=== PATIENT | male | born 1990 | race Caucasian/White ===

== ENCOUNTER 2020-11-06 21:48 | Inpatient (IN) | payer OTHER ==
[2020-11-06 22:23] VITALS: BMI 22.7
[2020-11-06] MEDS ORDERED: DICYCLOMINE HCL 10 MG CAPSULE PO PRN (23:17)
[2020-11-06] MEDS ORDERED: MAG HYDROX/AL HYDROX/SIMETH 30 ML UNIT-DOSE CUP PO PRN (23:17)
[2020-11-06] MEDS ORDERED: MAGNESIUM CITRATE 300 ML BOTTLE PO PRN (23:17)
[2020-11-06] MEDS ORDERED: NICOTINE POLACRILEX 4 MG GUM BUC PRN ×2 (23:17→23:38)
[2020-11-06] MEDS ORDERED: BISMUTH SUBSALICYLATE 524 MG/30 ML UD PO PRN (23:17)
[2020-11-06] MEDS ORDERED: ACETAMINOPHEN 325 MG TABLET (FP) PO PRN (23:17)
[2020-11-06] MEDS ORDERED: cloNIDine HCL 0.1 MG TABLET PO PRN (23:17)
[2020-11-06] MEDS ORDERED: MAGNESIUM HYDROX 2400MG/30ML ORAL SUSPENSION 30 ML CUP PO PRN (23:17)
[2020-11-06] MEDS ORDERED: METHADONE HCL 10 MG TABLET (FOR DETOX USE ONLY) PO ONE (23:17)
[2020-11-06] MEDS ORDERED: NALOXONE (NARCAN) HCL 4 MG/0.1 ML SPRAY NS PRN (23:17)
[2020-11-06] MEDS ORDERED: hydrOXYzine PAMOATE 25 MG CAPSULE (FP) PO PRN (23:17)
[2020-11-06] MEDS ORDERED: NALOXONE HCL 0.4 MG/ML VIAL IM PRN (23:17)
[2020-11-06] MEDS ORDERED: guaiFENesin 200 MG/10 ML 10 ML UNIT-DOSE CUPS PO PRN (23:17)
[2020-11-06] MEDS ORDERED: P-EPHED 60MG/TRIPROLIDI 2.5MG TABLET PO PRN (23:17)
[2020-11-06] MEDS ORDERED: METHOCARBAMOL 500 MG TABLET PO PRN (23:17)
[2020-11-06] MEDS ORDERED: ONDANSETRON *ODT* 4 MG TABLET SL PRN (23:17)
[2020-11-06] MEDS ORDERED: MENTHOL/PHENOL 1 EACH UD MM PRN (23:17)
[2020-11-07] MEDS ORDERED: METHADONE HCL 10 MG TABLET (FOR DETOX USE ONLY) ONE ×2 (00:01→11:00)
[2020-11-07] MEDS ORDERED: diazePAM 5 MG TABLET ONE ×2 (00:01→05:25)
[2020-11-07] MEDS: diazePAM 5 MG TABLET PO SCH ×5 (00:12→22:05)
[2020-11-07] MEDS ORDERED: METHADONE (DETOX) 20 MG, METHADONE (DETOX) 5 MG PO ONE (10:00)
[2020-11-07] MEDS ORDERED: NICOTINE 21 MG/24 HOURS TOPICAL PATCH TD SCH (10:00)
[2020-11-07] MEDS ORDERED: METHADONE HCL 5 MG TABLET (FOR DETOX USE ONLY) PO ONE (10:00)
[2020-11-07 10:06] LABS: CALCIUM 8.7 mg/dL (8.5-10.1); HEMATOCRIT 37.4 % (35.4-49); HEMOGLOBIN 12.3 GM/dL (11.7-16.9); MCH 28.4 pg (25.7-33.7); MCHC 32.8 g/dl (32.0-35.9); MEAN CELL VOLUME 86.4 fl (80-96); MEAN PLT VOLUME 8.3 fl (7.5-11.1); PLATELET COUNT 255 K/MM3 (134-434); RBC 4.33 M/mm3 (4.00-5.60); RDW 12.9 % (11.9-15.9); WHITE BLOOD COUNT 8.7 K/mm3 (4.0-10.0)
[2020-11-07 10:07] LABS: BLOOD UREA NITROGEN 19.2 mg/dL (7-18)
[2020-11-07 10:08] LABS: ALBUMIN 3.7 g/dl (3.4-5.0)
[2020-11-07 10:11] LABS: BILIRUBIN,TOTAL 0.3 mg/dL (0.2-1); TOT PROT 6.9 g/dl (6.4-8.2)
[2020-11-07] MEDS ORDERED: METHADONE HCL 5 MG TABLET (FOR DETOX USE ONLY) ONE (10:59)
[2020-11-07] MEDS: PRENATAL VITAMINS W/ FOLIC ACID TABLET (FP) PO SCH (11:08)
[2020-11-07] MEDS: NICOTINE 21 MG/24 HOURS TOPICAL PATCH TD SCH (11:08)
[2020-11-07] MEDS: THIAMINE HCL 100 MG TABLET (FP) PO SCH (22:05)
[2020-11-07] MEDS: MELATONIN 5 MG TABLETS PO SCH (22:06)
[2020-11-08] MEDS: diazePAM 5 MG TABLET PO SCH ×3 (05:30→22:05)
[2020-11-08] MEDS: diazePAM 5 MG TABLET PO PRN ×2 (08:35→18:14)
[2020-11-08] MEDS: ACETAMINOPHEN 325 MG TABLET (FP) PO PRN (08:37)
[2020-11-08] MEDS ORDERED: METHADONE HCL 10 MG TABLET (FOR DETOX USE ONLY) PO ONE (10:00)
[2020-11-08] MEDS: PRENATAL VITAMINS W/ FOLIC ACID TABLET (FP) PO SCH (10:37)
[2020-11-08] MEDS: NICOTINE 21 MG/24 HOURS TOPICAL PATCH TD SCH (10:38)
[2020-11-08] MEDS: IBUPROFEN 400 MG TABLET (FP) PO PRN (14:16)
[2020-11-08] MEDS: THIAMINE HCL 100 MG TABLET (FP) PO SCH (22:06)
[2020-11-08] MEDS: MELATONIN 5 MG TABLETS PO SCH (22:06)
[2020-11-09] MEDS: diazePAM 5 MG TABLET PO SCH ×2 (05:06→18:05)
[2020-11-09 06:06] LABS: SARS-CoV-2 NAA Not Detected (Not Detected)
[2020-11-09] MEDS ORDERED: METHADONE HCL 5 MG TABLET (FOR DETOX USE ONLY) ONE (09:12)
[2020-11-09] MEDS ORDERED: METHADONE HCL 10 MG TABLET (FOR DETOX USE ONLY) ONE (09:13)
[2020-11-09] MEDS: NICOTINE 21 MG/24 HOURS TOPICAL PATCH TD SCH (09:40)
[2020-11-09] MEDS: PRENATAL VITAMINS W/ FOLIC ACID TABLET (FP) PO SCH (09:41)
[2020-11-09] MEDS ORDERED: METHADONE (DETOX) 10 MG, METHADONE (DETOX) 5 MG PO ONE (10:00)
[2020-11-09] MEDS: diazePAM 5 MG TABLET PO PRN ×2 (12:35→22:15)
[2020-11-09] MEDS: ACETAMINOPHEN 325 MG TABLET (FP) PO PRN ×2 (12:36→18:06)
[2020-11-09] MEDS: IBUPROFEN 400 MG TABLET (FP) PO PRN (22:14)
[2020-11-09] MEDS: THIAMINE HCL 100 MG TABLET (FP) PO SCH (22:15)
[2020-11-09] MEDS: MELATONIN 5 MG TABLETS PO SCH (22:16)
[2020-11-10] MEDS ORDERED: diazePAM 5 MG TABLET PO ONE (06:00)
[2020-11-10] MEDS: NICOTINE 21 MG/24 HOURS TOPICAL PATCH TD SCH (09:01)
[2020-11-10] MEDS: PRENATAL VITAMINS W/ FOLIC ACID TABLET (FP) PO SCH (09:01)
[2020-11-10 09:22] VITALS: BP 142/91; PULSE 99; TEMP 97.6
[2020-11-10] MEDS ORDERED: METHADONE HCL 10 MG TABLET (FOR DETOX USE ONLY) PO ONE (10:00)
[2020-11-11] MEDS ORDERED: METHADONE HCL 5 MG TABLET (FOR DETOX USE ONLY) PO ONE (06:00)
== END 2020-11-10 09:28 | disposition home or self-care (01) | DRG 773 ==
LOC: YASAS 21:48 → Y6N 11-07 08:04
PROVIDERS: ADMIT Allergy & Immunology; ATTEND Allergy & Immunology
PROC: HZ2ZZZZ Detoxification Services for Substance Abuse Treatment (ICD-10-PCS; principal; 2020-11-07)
DX: F10.230 Alcohol dependence with withdrawal, uncomplicated (principal); F11.23 Opioid dependence with withdrawal; F13.230 Sedative, hypnotic or anxiolytic dependence with withdrawal, uncomplicated; F14.20 Cocaine dependence, uncomplicated; F17.210 Nicotine dependence, cigarettes, uncomplicated; F19.24 Other psychoactive substance dependence with psychoactive substance-induced mood disorder; F42.4 Excoriation (skin-picking) disorder; K29.20 Alcoholic gastritis without bleeding; K21.9 Gastro-esophageal reflux disease without esophagitis; L30.9 Dermatitis, unspecified; R45.89 Other symptoms and signs involving emotional state
CPT/HCPCS: 36415; 80053; 85027; 86780; 93005; 93010; C9803; J0735; U0003; U0005

== ENCOUNTER 2020-11-24 20:31 | Inpatient (IN) | payer OTHER ==
[2020-11-24 21:24] VITALS: BMI 21.4
[2020-11-25] MEDS ORDERED: MAGNESIUM HYDROX 2400MG/30ML ORAL SUSPENSION 30 ML CUP PO PRN (00:10)
[2020-11-25] MEDS ORDERED: METHADONE HCL 10 MG TABLET (FOR DETOX USE ONLY) PO ONE (00:10)
[2020-11-25] MEDS ORDERED: ACETAMINOPHEN 325 MG TABLET (FP) PO PRN (00:10)
[2020-11-25] MEDS ORDERED: BISMUTH SUBSALICYLATE 524 MG/30 ML PO PRN (00:10)
[2020-11-25] MEDS ORDERED: MENTHOL/PHENOL 1 EACH UD MM PRN (00:10)
[2020-11-25] MEDS ORDERED: MAGNESIUM CITRATE 300 ML BOTTLE PO PRN (00:10)
[2020-11-25] MEDS ORDERED: MAG HYDROX/AL HYDROX/SIMETH 30 ML UNIT-DOSE CUP PO PRN (00:10)
[2020-11-25] MEDS ORDERED: NICOTINE POLACRILEX 2 MG GUM BUC PRN (00:10)
[2020-11-25] MEDS ORDERED: ONDANSETRON *ODT* 4 MG TABLET SL PRN (00:10)
[2020-11-25] MEDS ORDERED: IBUPROFEN 400 MG TABLET (FP) PO PRN (00:10)
[2020-11-25] MEDS ORDERED: METHADONE HCL 10 MG TABLET (FOR DETOX USE ONLY) ONE (00:54)
[2020-11-25] MEDS ORDERED: IBUPROFEN 400 MG TABLET (FP) PO ONE (01:00)
[2020-11-25] MEDS: cloNIDine HCL 0.1 MG TABLET PO PRN (10:04)
[2020-11-25] MEDS: METHOCARBAMOL 500 MG TABLET PO PRN ×2 (10:04→17:44)
[2020-11-25] MEDS: PRENATAL VITAMINS W/ FOLIC ACID TABLET (FP) PO SCH (10:04)
[2020-11-25 12:54] LABS: HEMATOCRIT 36.9 % (35.4-49); HEMOGLOBIN 12.1 GM/dL (11.7-16.9); MCH 28.5 pg (25.7-33.7); MCHC 32.7 g/dl (32.0-35.9); MEAN CELL VOLUME 87.3 fl (80-96); MEAN PLT VOLUME 8.2 fl (7.5-11.1); PLATELET COUNT 220 K/MM3 (134-434); RBC 4.23 M/mm3 (4.00-5.60); RDW 12.7 % (11.9-15.9); WHITE BLOOD COUNT 9.4 K/mm3 (4.0-10.0)
[2020-11-25 13:13] LABS: ALBUMIN 3.8 g/dl (3.4-5.0); BLOOD UREA NITROGEN 19.4 mg/dL (7-18)
[2020-11-25 13:15] LABS: CALCIUM 8.8 mg/dL (8.5-10.1)
[2020-11-25 13:17] LABS: CREATININE 0.8 mg/dL (0.55-1.3)
[2020-11-25 13:18] LABS: BILIRUBIN,TOTAL 0.3 mg/dL (0.2-1); TOT PROT 6.4 g/dl (6.4-8.2)
[2020-11-25] MEDS: THIAMINE HCL 100 MG TABLET (FP) PO SCH (22:09)
[2020-11-25] MEDS: MELATONIN 5 MG TABLETS PO SCH (22:09)
[2020-11-26] MEDS: cloNIDine HCL 0.1 MG TABLET PO PRN ×2 (06:23→19:25)
[2020-11-26] MEDS: METHOCARBAMOL 500 MG TABLET PO PRN ×2 (06:24→19:25)
[2020-11-26] MEDS ORDERED: METHADONE HCL 10 MG TABLET (FOR DETOX USE ONLY) ONE (09:21)
[2020-11-26] MEDS ORDERED: METHADONE HCL 5 MG TABLET (FOR DETOX USE ONLY) ONE (09:22)
[2020-11-26] MEDS ORDERED: METHADONE (DETOX) 20 MG, METHADONE (DETOX) 5 MG PO ONE (10:00)
[2020-11-26] MEDS: PRENATAL VITAMINS W/ FOLIC ACID TABLET (FP) PO SCH (10:20)
[2020-11-26] MEDS: diazePAM 5 MG TABLET PO PRN ×2 (10:56→19:25)
[2020-11-26] MEDS: MELATONIN 5 MG TABLETS PO SCH (22:18)
[2020-11-26] MEDS: THIAMINE HCL 100 MG TABLET (FP) PO SCH (22:18)
[2020-11-27] MEDS ORDERED: METHADONE HCL 10 MG TABLET (FOR DETOX USE ONLY) PO ONE (10:00)
[2020-11-27] MEDS: diazePAM 5 MG TABLET PO PRN ×3 (10:36→22:28)
[2020-11-27] MEDS: PRENATAL VITAMINS W/ FOLIC ACID TABLET (FP) PO SCH (10:36)
[2020-11-27] MEDS: cloNIDine HCL 0.1 MG TABLET PO PRN ×2 (10:39→17:39)
[2020-11-27] MEDS: METHOCARBAMOL 500 MG TABLET PO PRN ×2 (10:39→17:40)
[2020-11-27] MEDS: ACETAMINOPHEN 325 MG TABLET (FP) PO PRN ×2 (10:40→15:46)
[2020-11-27] MEDS: THIAMINE HCL 100 MG TABLET (FP) PO SCH (22:27)
[2020-11-27] MEDS: MELATONIN 5 MG TABLETS PO SCH (22:27)
[2020-11-27] MEDS: QUEtiapine FUMARATE 100 MG TABLET (FP) PO SCH (22:27)
[2020-11-28 06:07] LABS: SARS-CoV-2 NAA Not Detected (Not Detected)
[2020-11-28] MEDS ORDERED: METHADONE HCL 10 MG TABLET (FOR DETOX USE ONLY) ONE (09:57)
[2020-11-28] MEDS ORDERED: METHADONE HCL 5 MG TABLET (FOR DETOX USE ONLY) ONE (09:57)
[2020-11-28] MEDS ORDERED: METHADONE (DETOX) 10 MG, METHADONE (DETOX) 5 MG PO ONE (10:00)
[2020-11-28] MEDS: METHOCARBAMOL 500 MG TABLET PO PRN ×2 (10:30→20:24)
[2020-11-28] MEDS: PRENATAL VITAMINS W/ FOLIC ACID TABLET (FP) PO SCH (10:30)
[2020-11-28] MEDS: diazePAM 5 MG TABLET PO PRN ×3 (10:30→20:25)
[2020-11-28] MEDS: ACETAMINOPHEN 325 MG TABLET (FP) PO PRN (20:29)
[2020-11-28] MEDS: MELATONIN 5 MG TABLETS PO SCH (22:17)
[2020-11-28] MEDS: QUEtiapine FUMARATE 100 MG TABLET (FP) PO SCH (22:18)
[2020-11-28] MEDS: THIAMINE HCL 100 MG TABLET (FP) PO SCH (22:18)
[2020-11-29 06:55] VITALS: TEMP 96.9
[2020-11-29 09:20] VITALS: BP 130/75; PULSE 88
[2020-11-29] MEDS ORDERED: METHADONE HCL 10 MG TABLET (FOR DETOX USE ONLY) PO ONE (10:00)
[2020-11-29] MEDS: METHOCARBAMOL 500 MG TABLET PO PRN (10:23)
[2020-11-29] MEDS: PRENATAL VITAMINS W/ FOLIC ACID TABLET (FP) PO SCH (10:23)
[2020-11-30] MEDS ORDERED: METHADONE HCL 5 MG TABLET (FOR DETOX USE ONLY) PO ONE (06:00)
== END 2020-11-29 11:45 | disposition home or self-care (01) | DRG 773 ==
LOC: YASAS 20:31 → Y3N 11-25 02:18
PROVIDERS: ADMIT Allergy & Immunology; ATTEND Allergy & Immunology
PROC: HZ2ZZZZ Detoxification Services for Substance Abuse Treatment (ICD-10-PCS; principal; 2020-11-25)
DX: F11.23 Opioid dependence with withdrawal (principal); F14.20 Cocaine dependence, uncomplicated; F17.210 Nicotine dependence, cigarettes, uncomplicated; K29.20 Alcoholic gastritis without bleeding; L30.9 Dermatitis, unspecified; R03.0 Elevated blood-pressure reading, without diagnosis of hypertension; R79.89 Other specified abnormal findings of blood chemistry
CPT/HCPCS: 36415; 80053; 85027; 86780; 93005; 93010; C9803; J0735; Q0162; U0003; U0005

== ENCOUNTER 2020-12-02 18:20 | Inpatient (IN) | payer OTHER ==
[2020-12-02 18:43] VITALS: BMI 24.9
[2020-12-02] MEDS ORDERED: MAGNESIUM CITRATE 300 ML BOTTLE PO PRN (19:26)
[2020-12-02] MEDS ORDERED: ACETAMINOPHEN 325 MG TABLET (FP) PO PRN (19:26)
[2020-12-02] MEDS ORDERED: guaiFENesin 200 MG/10 ML 10 ML UNIT-DOSE CUPS PO PRN (19:26)
[2020-12-02] MEDS ORDERED: P-EPHED 60MG/TRIPROLIDI 2.5MG TABLET PO PRN (19:26)
[2020-12-02] MEDS ORDERED: MENTHOL/PHENOL 1 EACH UD MM PRN (19:26)
[2020-12-02] MEDS ORDERED: MAGNESIUM HYDROX 2400MG/30ML ORAL SUSPENSION 30 ML CUP PO PRN (19:26)
[2020-12-02] MEDS ORDERED: MAG HYDROX/AL HYDROX/SIMETH 30 ML UNIT-DOSE CUP PO PRN (19:26)
[2020-12-02] MEDS ORDERED: LOPERAMIDE HCL 2 MG CAPSULE PO PRN (19:26)
[2020-12-02] MEDS ORDERED: NICOTINE POLACRILEX 2 MG GUM BUC PRN (19:26)
[2020-12-03] MEDS: MELATONIN 5 MG TABLETS PO SCH ×2 (01:59→21:52)
[2020-12-03] MEDS: THIAMINE HCL 100 MG TABLET (FP) PO SCH ×2 (02:00→21:53)
[2020-12-03] MEDS: IBUPROFEN 400 MG TABLET (FP) PO PRN ×2 (02:12→16:16)
[2020-12-03] MEDS: hydrOXYzine PAMOATE 25 MG CAPSULE (FP) PO PRN ×3 (02:13→19:16)
[2020-12-03] MEDS: cloNIDine HCL 0.1 MG TABLET PO PRN ×2 (02:13→16:16)
[2020-12-03] MEDS: PRENATAL VITAMINS W/ FOLIC ACID TABLET (FP) PO SCH (10:42)
[2020-12-03] MEDS: NICOTINE 14 MG/24 HOURS TOPICAL PATCH TD SCH (10:42)
[2020-12-03] MEDS ORDERED: BUPRENORPHINE/NALOXONE 8 MG/2 MG FILM PACKET SL SCH (18:15)
[2020-12-04] MEDS: IBUPROFEN 400 MG TABLET (FP) PO PRN (06:20)
[2020-12-04] MEDS: hydrOXYzine PAMOATE 25 MG CAPSULE (FP) PO PRN (06:20)
[2020-12-04] MEDS: cloNIDine HCL 0.1 MG TABLET PO PRN (06:20)
[2020-12-04 07:01] VITALS: BP 118/77; PULSE 73; TEMP 97.3
[2020-12-04] MEDS: PRENATAL VITAMINS W/ FOLIC ACID TABLET (FP) PO SCH (09:19)
[2020-12-04] MEDS: NICOTINE 14 MG/24 HOURS TOPICAL PATCH TD SCH (09:21)
== END 2020-12-04 09:25 | disposition left against medical advice (07) | DRG 770 ==
LOC: YASAS 18:20 → Y5N 12-03 01:21
PROVIDERS: ADMIT Allergy & Immunology; ATTEND Allergy & Immunology
PROC: HZ42ZZZ Group Counseling for Substance Abuse Treatment, Cognitive-Behavioral (ICD-10-PCS; principal; 2020-12-03)
DX: F10.20 Alcohol dependence, uncomplicated (principal); F11.20 Opioid dependence, uncomplicated; F14.20 Cocaine dependence, uncomplicated; F13.20 Sedative, hypnotic or anxiolytic dependence, uncomplicated; F17.210 Nicotine dependence, cigarettes, uncomplicated; F42.4 Excoriation (skin-picking) disorder; K21.9 Gastro-esophageal reflux disease without esophagitis; K29.50 Unspecified chronic gastritis without bleeding; L30.9 Dermatitis, unspecified
CPT/HCPCS: C9803; J0735; U0003; U0005

== ENCOUNTER 2020-12-17 18:29 | Inpatient (IN) | payer OTHER ==
[2020-12-17 19:46] VITALS: BMI 25.3
[2020-12-17] MEDS ORDERED: ACETAMINOPHEN 325 MG TABLET (FP) PO PRN ×2 (21:20)
[2020-12-17] MEDS ORDERED: MAGNESIUM HYDROX 2400MG/30ML ORAL SUSPENSION 30 ML CUP PO PRN (21:20)
[2020-12-17] MEDS ORDERED: ONDANSETRON *ODT* 4 MG TABLET SL PRN (21:20)
[2020-12-17] MEDS ORDERED: METHADONE HCL 10 MG TABLET (FOR DETOX USE ONLY) PO ONE (21:20)
[2020-12-17] MEDS ORDERED: MENTHOL/PHENOL 1 EACH UD MM PRN (21:20)
[2020-12-17] MEDS ORDERED: NICOTINE POLACRILEX 2 MG GUM BUC PRN (21:20)
[2020-12-17] MEDS ORDERED: MAG HYDROX/AL HYDROX/SIMETH 30 ML UNIT-DOSE CUP PO PRN (21:20)
[2020-12-17] MEDS ORDERED: MAGNESIUM CITRATE 300 ML BOTTLE PO PRN (21:20)
[2020-12-17] MEDS ORDERED: BISMUTH SUBSALICYLATE 524 MG/30 ML PO PRN (21:20)
[2020-12-17] MEDS ORDERED: METHADONE HCL 10 MG TABLET (FOR DETOX USE ONLY) ONE (21:34)
[2020-12-17] MEDS ORDERED: cloNIDine HCL 0.1 MG TABLET ONE (21:39)
[2020-12-17] MEDS: cloNIDine HCL 0.1 MG TABLET PO PRN (21:43)
[2020-12-17] MEDS: THIAMINE HCL 100 MG TABLET (FP) PO SCH (22:43)
[2020-12-17] MEDS: MELATONIN 5 MG TABLETS PO SCH (22:43)
[2020-12-17] MEDS: METHOCARBAMOL 500 MG TABLET PO PRN (22:44)
[2020-12-18] MEDS ORDERED: METHADONE (DETOX) 20 MG, METHADONE (DETOX) 5 MG PO ONE (10:00)
[2020-12-18] MEDS ORDERED: METHADONE HCL 10 MG TABLET (FOR DETOX USE ONLY) ONE (10:05)
[2020-12-18] MEDS ORDERED: METHADONE HCL 5 MG TABLET (FOR DETOX USE ONLY) ONE (10:06)
[2020-12-18 10:23] LABS: HEMATOCRIT 37.6 % (35.4-49); HEMOGLOBIN 12.2 GM/dL (11.7-16.9); MCH 28.7 pg (25.7-33.7); MCHC 32.5 g/dl (32.0-35.9); MEAN CELL VOLUME 88.3 fl (80-96); PLATELET COUNT 215 K/MM3 (134-434); RBC 4.26 M/mm3 (4.00-5.60); RDW 12.9 % (11.9-15.9); WHITE BLOOD COUNT 8.8 K/mm3 (4.0-10.0)
[2020-12-18] MEDS: METHOCARBAMOL 500 MG TABLET PO PRN ×2 (10:31→17:52)
[2020-12-18] MEDS: PRENATAL VITAMINS W/ FOLIC ACID TABLET (FP) PO SCH (10:31)
[2020-12-18] MEDS: NICOTINE 14 MG/24 HOURS TOPICAL PATCH TD SCH (10:32)
[2020-12-18] MEDS: diazePAM 5 MG TABLET PO PRN ×3 (10:33→21:23)
[2020-12-18 10:45] LABS: ALBUMIN 3.4 g/dl (3.4-5.0); BLOOD UREA NITROGEN 17.1 mg/dL (7-18); CALCIUM 8.6 mg/dL (8.5-10.1)
[2020-12-18 10:46] LABS: CREATININE 0.8 mg/dL (0.55-1.3)
[2020-12-18 10:50] LABS: BILIRUBIN,TOTAL 0.4 mg/dL (0.2-1); TOT PROT 6.1 g/dl (6.4-8.2)
[2020-12-18 11:28] LABS: HIV INTERPRETATION NEGATIVE (NEGATIVE)
[2020-12-18] MEDS: cloNIDine HCL 0.1 MG TABLET PO PRN (17:52)
[2020-12-18] MEDS: MELATONIN 5 MG TABLETS PO SCH (21:19)
[2020-12-18] MEDS: THIAMINE HCL 100 MG TABLET (FP) PO SCH (21:20)
[2020-12-19] MEDS: diazePAM 5 MG TABLET PO PRN ×3 (08:47→19:47)
[2020-12-19] MEDS ORDERED: METHADONE HCL 10 MG TABLET (FOR DETOX USE ONLY) PO ONE (10:00)
[2020-12-19] MEDS: PRENATAL VITAMINS W/ FOLIC ACID TABLET (FP) PO SCH (10:21)
[2020-12-19] MEDS: METHOCARBAMOL 500 MG TABLET PO PRN ×2 (10:22→19:47)
[2020-12-19] MEDS: NICOTINE 14 MG/24 HOURS TOPICAL PATCH TD SCH (10:23)
[2020-12-19] MEDS: cloNIDine HCL 0.1 MG TABLET PO PRN ×3 (10:23→19:47)
[2020-12-19] MEDS ORDERED: CLOTRIMAZOLE 1% CREAM 15 GM TUBE TP SCH (11:15)
[2020-12-19] MEDS: IBUPROFEN 400 MG TABLET (FP) PO PRN (12:18)
[2020-12-19] MEDS: CLOTRIMAZOLE 1% CREAM 15 GM TUBE TP SCH ×2 (15:12→22:05)
[2020-12-19] MEDS: MELATONIN 5 MG TABLETS PO SCH (22:05)
[2020-12-19] MEDS: THIAMINE HCL 100 MG TABLET (FP) PO SCH (22:05)
[2020-12-20] MEDS: diazePAM 5 MG TABLET PO PRN ×5 (03:28→22:03)
[2020-12-20] MEDS: METHOCARBAMOL 500 MG TABLET PO PRN ×4 (03:30→22:02)
[2020-12-20] MEDS ORDERED: METHADONE HCL 10 MG TABLET (FOR DETOX USE ONLY) ONE (08:45)
[2020-12-20] MEDS ORDERED: METHADONE HCL 5 MG TABLET (FOR DETOX USE ONLY) ONE (08:46)
[2020-12-20] MEDS: PRENATAL VITAMINS W/ FOLIC ACID TABLET (FP) PO SCH (09:58)
[2020-12-20] MEDS: CLOTRIMAZOLE 1% CREAM 15 GM TUBE TP SCH ×2 (09:58→22:01)
[2020-12-20] MEDS ORDERED: METHADONE (DETOX) 10 MG, METHADONE (DETOX) 5 MG PO ONE (10:00)
[2020-12-20] MEDS: NICOTINE 14 MG/24 HOURS TOPICAL PATCH TD SCH (10:00)
[2020-12-20] MEDS: IBUPROFEN 400 MG TABLET (FP) PO PRN (12:40)
[2020-12-20] MEDS: cloNIDine HCL 0.1 MG TABLET PO PRN ×2 (17:08→22:04)
[2020-12-20] MEDS: MELATONIN 5 MG TABLETS PO SCH (22:02)
[2020-12-20] MEDS: THIAMINE HCL 100 MG TABLET (FP) PO SCH (22:02)
[2020-12-21] MEDS: diazePAM 5 MG TABLET PO PRN ×2 (03:33→08:34)
[2020-12-21] MEDS: cloNIDine HCL 0.1 MG TABLET PO PRN ×2 (03:35→10:10)
[2020-12-21] MEDS: METHOCARBAMOL 500 MG TABLET PO PRN ×2 (08:34→14:47)
[2020-12-21] MEDS ORDERED: METHADONE HCL 10 MG TABLET (FOR DETOX USE ONLY) PO ONE (10:00)
[2020-12-21] MEDS: PRENATAL VITAMINS W/ FOLIC ACID TABLET (FP) PO SCH (10:10)
[2020-12-21] MEDS: NICOTINE 14 MG/24 HOURS TOPICAL PATCH TD SCH (10:10)
[2020-12-21] MEDS: CLOTRIMAZOLE 1% CREAM 15 GM TUBE TP SCH ×2 (10:12→21:34)
[2020-12-21] MEDS: GABAPENTIN 100 MG CAPSULE PO SCH (21:33)
[2020-12-21] MEDS: MELATONIN 5 MG TABLETS PO SCH (21:33)
[2020-12-21] MEDS: THIAMINE HCL 100 MG TABLET (FP) PO SCH (21:33)
[2020-12-21] MEDS ORDERED: diazePAM 5 MG TABLET PO ONE (22:00)
[2020-12-21] MEDS ORDERED: QUEtiapine FUMARATE 100 MG TABLET (FP) PO SCH (22:00)
[2020-12-22] MEDS: METHOCARBAMOL 500 MG TABLET PO PRN ×2 (00:50→12:53)
[2020-12-22] MEDS ORDERED: diazePAM 5 MG TABLET PO ONE (05:00)
[2020-12-22] MEDS: GABAPENTIN 100 MG CAPSULE PO SCH ×2 (05:23→13:00)
[2020-12-22] MEDS ORDERED: METHADONE HCL 5 MG TABLET (FOR DETOX USE ONLY) PO ONE (06:00)
[2020-12-22 09:16] VITALS: BP 124/65; PULSE 77; TEMP 96.7
[2020-12-22 10:07] LABS: SARS-CoV-2 NAA Not Detected (Not Detected)
[2020-12-22] MEDS: PRENATAL VITAMINS W/ FOLIC ACID TABLET (FP) PO SCH (10:14)
[2020-12-22] MEDS: NICOTINE 14 MG/24 HOURS TOPICAL PATCH TD SCH (10:15)
[2020-12-22] MEDS: CLOTRIMAZOLE 1% CREAM 15 GM TUBE TP SCH (10:15)
== END 2020-12-22 13:05 | disposition other institution (70) | DRG 773 ==
LOC: YASAS 18:29 → Y3N 21:48
PROVIDERS: ADMIT Allergy & Immunology; ATTEND Allergy & Immunology
PROC: HZ2ZZZZ Detoxification Services for Substance Abuse Treatment (ICD-10-PCS; principal; 2020-12-17)
DX: F10.230 Alcohol dependence with withdrawal, uncomplicated (principal); F11.23 Opioid dependence with withdrawal; F13.230 Sedative, hypnotic or anxiolytic dependence with withdrawal, uncomplicated; F14.20 Cocaine dependence, uncomplicated; F17.210 Nicotine dependence, cigarettes, uncomplicated; F19.280 Other psychoactive substance dependence with psychoactive substance-induced anxiety disorder; F19.24 Other psychoactive substance dependence with psychoactive substance-induced mood disorder; F41.9 Anxiety disorder, unspecified; G47.00 Insomnia, unspecified; K21.9 Gastro-esophageal reflux disease without esophagitis; L30.9 Dermatitis, unspecified
CPT/HCPCS: 36415; 80053; 85027; 86780; 87389; C9803; J0735; U0003; U0005

== ENCOUNTER 2020-12-22 13:17 | Inpatient (IN) | payer OTHER ==
[2020-12-22] MEDS ORDERED: P-EPHED 60MG/TRIPROLIDI 2.5MG TABLET PO PRN (14:11)
[2020-12-22] MEDS ORDERED: NICOTINE POLACRILEX 2 MG GUM BUC PRN (14:11)
[2020-12-22] MEDS ORDERED: MAGNESIUM CITRATE 300 ML BOTTLE PO PRN (14:11)
[2020-12-22] MEDS ORDERED: MAGNESIUM HYDROX 2400MG/30ML ORAL SUSPENSION 30 ML CUP PO PRN (14:11)
[2020-12-22] MEDS ORDERED: MAG HYDROX/AL HYDROX/SIMETH 30 ML UNIT-DOSE CUP PO PRN (14:11)
[2020-12-22] MEDS ORDERED: guaiFENesin 200 MG/10 ML 10 ML UNIT-DOSE CUPS PO PRN (14:11)
[2020-12-22] MEDS ORDERED: MENTHOL/PHENOL 1 EACH UD MM PRN (14:11)
[2020-12-22] MEDS ORDERED: LOPERAMIDE HCL 2 MG CAPSULE PO PRN (14:11)
[2020-12-22] MEDS: METHOCARBAMOL 500 MG TABLET PO PRN ×2 (17:35→21:38)
[2020-12-22] MEDS: hydrOXYzine PAMOATE 25 MG CAPSULE (FP) PO PRN ×2 (17:35→21:38)
[2020-12-22] MEDS: MELATONIN 5 MG TABLETS PO SCH (21:37)
[2020-12-22] MEDS: THIAMINE HCL 100 MG TABLET (FP) PO SCH (21:37)
[2020-12-22] MEDS: GABAPENTIN 100 MG CAPSULE PO SCH (21:38)
[2020-12-22] MEDS: QUEtiapine FUMARATE 100 MG TABLET (FP) PO SCH (21:38)
[2020-12-23] MEDS: GABAPENTIN 100 MG CAPSULE PO SCH ×3 (07:06→21:40)
[2020-12-23] MEDS: hydrOXYzine PAMOATE 25 MG CAPSULE (FP) PO PRN ×2 (07:07→10:21)
[2020-12-23] MEDS: IBUPROFEN 400 MG TABLET (FP) PO PRN ×2 (07:07→14:42)
[2020-12-23] MEDS: METHOCARBAMOL 500 MG TABLET PO PRN ×2 (07:07→14:41)
[2020-12-23] MEDS: PRENATAL VITAMINS W/ FOLIC ACID TABLET (FP) PO SCH (10:20)
[2020-12-23] MEDS: NICOTINE 7 MG/24 HOURS TOPICAL PATCH TD SCH (10:20)
[2020-12-23] MEDS: hydrOXYzine PAMOATE 50 MG CAPSULE (FP) PO PRN (14:41)
[2020-12-23] MEDS: QUEtiapine FUMARATE 100 MG TABLET (FP) PO SCH (21:40)
[2020-12-23] MEDS: THIAMINE HCL 100 MG TABLET (FP) PO SCH (21:40)
[2020-12-23] MEDS: MELATONIN 5 MG TABLETS PO SCH (21:41)
[2020-12-24] MEDS: ACETAMINOPHEN 325 MG TABLET (FP) PO PRN ×3 (07:05→21:40)
[2020-12-24] MEDS: METHOCARBAMOL 500 MG TABLET PO PRN ×3 (07:05→21:39)
[2020-12-24] MEDS: GABAPENTIN 100 MG CAPSULE PO SCH ×3 (07:05→21:39)
[2020-12-24] MEDS: hydrOXYzine PAMOATE 50 MG CAPSULE (FP) PO PRN ×3 (07:06→21:40)
[2020-12-24] MEDS: PRENATAL VITAMINS W/ FOLIC ACID TABLET (FP) PO SCH (10:38)
[2020-12-24] MEDS: NICOTINE 7 MG/24 HOURS TOPICAL PATCH TD SCH (10:39)
[2020-12-24] MEDS: IBUPROFEN 400 MG TABLET (FP) PO PRN ×2 (10:40→18:08)
[2020-12-24] MEDS: cloNIDine HCL 0.1 MG TABLET PO PRN (21:39)
[2020-12-24] MEDS: MELATONIN 5 MG TABLETS PO SCH (21:39)
[2020-12-24] MEDS: THIAMINE HCL 100 MG TABLET (FP) PO SCH (21:40)
[2020-12-24] MEDS: QUEtiapine FUMARATE 100 MG TABLET (FP) PO SCH (21:40)
[2020-12-25] MEDS: hydrOXYzine PAMOATE 50 MG CAPSULE (FP) PO PRN ×2 (07:00→21:25)
[2020-12-25] MEDS: METHOCARBAMOL 500 MG TABLET PO PRN ×2 (07:00→14:30)
[2020-12-25] MEDS: cloNIDine HCL 0.1 MG TABLET PO PRN (07:01)
[2020-12-25] MEDS: GABAPENTIN 100 MG CAPSULE PO SCH ×3 (07:02→21:25)
[2020-12-25] MEDS: IBUPROFEN 400 MG TABLET (FP) PO PRN ×2 (07:03→14:30)
[2020-12-25] MEDS ORDERED: BUPRENORPHINE/NALOXONE 2 MG/0.5 MG FILM PACKET SL ONE (10:02)
[2020-12-25] MEDS: PRENATAL VITAMINS W/ FOLIC ACID TABLET (FP) PO SCH (10:19)
[2020-12-25] MEDS: ACETAMINOPHEN 325 MG TABLET (FP) PO PRN (10:20)
[2020-12-25] MEDS: NICOTINE 7 MG/24 HOURS TOPICAL PATCH TD SCH (10:22)
[2020-12-25] MEDS ORDERED: PT OWN MED DRAWER 7, Y5N ONE (11:01)
[2020-12-25] MEDS ORDERED: cloNIDine HCL 0.1 MG TABLET PO ONE (17:03)
[2020-12-25] MEDS ORDERED: amLODIPine BESYLATE 10 MG TABLET (FP) PO ONE (17:06)
[2020-12-25] MEDS: MELATONIN 5 MG TABLETS PO SCH (21:24)
[2020-12-25] MEDS: THIAMINE HCL 100 MG TABLET (FP) PO SCH (21:24)
[2020-12-25] MEDS: QUEtiapine FUMARATE 100 MG TABLET (FP) PO SCH (21:25)
[2020-12-26] MEDS: METHOCARBAMOL 500 MG TABLET PO PRN ×3 (04:36→21:55)
[2020-12-26] MEDS: ACETAMINOPHEN 325 MG TABLET (FP) PO PRN (04:36)
[2020-12-26] MEDS: hydrOXYzine PAMOATE 50 MG CAPSULE (FP) PO PRN ×4 (04:36→21:55)
[2020-12-26] MEDS: GABAPENTIN 100 MG CAPSULE PO SCH ×3 (06:37→21:53)
[2020-12-26] MEDS: IBUPROFEN 400 MG TABLET (FP) PO PRN ×2 (06:37→17:25)
[2020-12-26] MEDS: PRENATAL VITAMINS W/ FOLIC ACID TABLET (FP) PO SCH (09:58)
[2020-12-26] MEDS: NICOTINE 7 MG/24 HOURS TOPICAL PATCH TD SCH (09:59)
[2020-12-26] MEDS ORDERED: BUPRENORPHINE/NALOXONE 2 MG/0.5 MG FILM PACKET SL ONE (10:00)
[2020-12-26] MEDS: THIAMINE HCL 100 MG TABLET (FP) PO SCH (21:53)
[2020-12-26] MEDS: MELATONIN 5 MG TABLETS PO SCH (21:53)
[2020-12-26] MEDS: QUEtiapine FUMARATE 100 MG TABLET (FP) PO SCH (21:53)
[2020-12-27] MEDS: IBUPROFEN 400 MG TABLET (FP) PO PRN (06:03)
[2020-12-27] MEDS: METHOCARBAMOL 500 MG TABLET PO PRN (06:03)
[2020-12-27] MEDS: hydrOXYzine PAMOATE 50 MG CAPSULE (FP) PO PRN ×2 (06:03→10:17)
[2020-12-27] MEDS: GABAPENTIN 100 MG CAPSULE PO SCH ×3 (06:03→22:04)
[2020-12-27] MEDS: NICOTINE 7 MG/24 HOURS TOPICAL PATCH TD SCH (10:16)
[2020-12-27] MEDS: PRENATAL VITAMINS W/ FOLIC ACID TABLET (FP) PO SCH (10:16)
[2020-12-27] MEDS ORDERED: BUPRENORPHINE/NALOXONE 4 MG/1 MG FILM PACKET SL ONE (11:05)
[2020-12-27] MEDS: ACETAMINOPHEN 325 MG TABLET (FP) PO PRN (11:15)
[2020-12-27] MEDS: MELATONIN 5 MG TABLETS PO SCH (22:04)
[2020-12-27] MEDS: QUEtiapine FUMARATE 100 MG TABLET (FP) PO SCH (22:04)
[2020-12-27] MEDS: THIAMINE HCL 100 MG TABLET (FP) PO SCH (22:04)
[2020-12-28] MEDS: GABAPENTIN 100 MG CAPSULE PO SCH ×3 (06:53→21:40)
[2020-12-28] MEDS: hydrOXYzine PAMOATE 50 MG CAPSULE (FP) PO PRN ×2 (06:53→21:40)
[2020-12-28] MEDS: METHOCARBAMOL 500 MG TABLET PO PRN ×3 (06:53→21:40)
[2020-12-28] MEDS: ACETAMINOPHEN 325 MG TABLET (FP) PO PRN (06:55)
[2020-12-28] MEDS: BUPRENORPHINE/NALOXONE 4 MG/1 MG FILM PACKET SL SCH (10:00)
[2020-12-28] MEDS: PRENATAL VITAMINS W/ FOLIC ACID TABLET (FP) PO SCH (10:00)
[2020-12-28] MEDS: NICOTINE 7 MG/24 HOURS TOPICAL PATCH TD SCH (10:00)
[2020-12-28] MEDS: IBUPROFEN 400 MG TABLET (FP) PO PRN (10:02)
[2020-12-28] MEDS: MELATONIN 5 MG TABLETS PO SCH (21:40)
[2020-12-28] MEDS: QUEtiapine FUMARATE 100 MG TABLET (FP) PO SCH (21:40)
[2020-12-28] MEDS: THIAMINE HCL 100 MG TABLET (FP) PO SCH (21:40)
[2020-12-29] MEDS: hydrOXYzine PAMOATE 50 MG CAPSULE (FP) PO PRN ×3 (06:16→21:34)
[2020-12-29] MEDS: GABAPENTIN 100 MG CAPSULE PO SCH ×3 (06:16→21:34)
[2020-12-29] MEDS: IBUPROFEN 400 MG TABLET (FP) PO PRN (06:16)
[2020-12-29] MEDS: METHOCARBAMOL 500 MG TABLET PO PRN ×2 (06:16→13:13)
[2020-12-29] MEDS: BUPRENORPHINE/NALOXONE 4 MG/1 MG FILM PACKET SL SCH (10:27)
[2020-12-29] MEDS: PRENATAL VITAMINS W/ FOLIC ACID TABLET (FP) PO SCH (10:27)
[2020-12-29] MEDS: NICOTINE 7 MG/24 HOURS TOPICAL PATCH TD SCH (10:27)
[2020-12-29] MEDS: MELATONIN 5 MG TABLETS PO SCH (21:33)
[2020-12-29] MEDS: THIAMINE HCL 100 MG TABLET (FP) PO SCH (21:34)
[2020-12-29] MEDS: QUEtiapine FUMARATE 200 MG TABLET PO SCH (21:37)
[2020-12-29] MEDS: TOLNAFTATE 1% CREAM 15 GM TUBE TP SCH (22:15)
[2020-12-30] MEDS: METHOCARBAMOL 500 MG TABLET PO PRN ×2 (06:51→21:28)
[2020-12-30] MEDS: hydrOXYzine PAMOATE 50 MG CAPSULE (FP) PO PRN ×2 (06:51→21:28)
[2020-12-30] MEDS: ACETAMINOPHEN 325 MG TABLET (FP) PO PRN ×2 (06:52→13:45)
[2020-12-30] MEDS: GABAPENTIN 100 MG CAPSULE PO SCH ×3 (06:52→21:28)
[2020-12-30] MEDS: PRENATAL VITAMINS W/ FOLIC ACID TABLET (FP) PO SCH (10:04)
[2020-12-30] MEDS: BUPRENORPHINE/NALOXONE 4 MG/1 MG FILM PACKET SL SCH (10:05)
[2020-12-30] MEDS: TOLNAFTATE 1% CREAM 15 GM TUBE TP SCH ×2 (10:05→21:29)
[2020-12-30] MEDS: NICOTINE 7 MG/24 HOURS TOPICAL PATCH TD SCH (10:06)
[2020-12-30] MEDS: IBUPROFEN 400 MG TABLET (FP) PO PRN (10:07)
[2020-12-30] MEDS: THIAMINE HCL 100 MG TABLET (FP) PO SCH (21:27)
[2020-12-30] MEDS: QUEtiapine FUMARATE 200 MG TABLET PO SCH (21:28)
[2020-12-30] MEDS: MELATONIN 5 MG TABLETS PO SCH (21:28)
[2020-12-31] MEDS: GABAPENTIN 100 MG CAPSULE PO SCH ×3 (07:51→21:23)
[2020-12-31] MEDS: PRENATAL VITAMINS W/ FOLIC ACID TABLET (FP) PO SCH (10:09)
[2020-12-31] MEDS: NICOTINE 7 MG/24 HOURS TOPICAL PATCH TD SCH (10:09)
[2020-12-31] MEDS: TOLNAFTATE 1% CREAM 15 GM TUBE TP SCH ×2 (10:10→21:24)
[2020-12-31] MEDS: BUPRENORPHINE/NALOXONE 4 MG/1 MG FILM PACKET SL SCH (10:10)
[2020-12-31] MEDS: METHOCARBAMOL 500 MG TABLET PO PRN ×2 (10:11→17:56)
[2020-12-31] MEDS: hydrOXYzine PAMOATE 50 MG CAPSULE (FP) PO PRN (10:12)
[2020-12-31] MEDS: IBUPROFEN 400 MG TABLET (FP) PO PRN ×2 (10:12→17:56)
[2020-12-31] MEDS: MELATONIN 5 MG TABLETS PO SCH (21:23)
[2020-12-31] MEDS: QUEtiapine FUMARATE 200 MG TABLET PO SCH (21:24)
[2020-12-31] MEDS: THIAMINE HCL 100 MG TABLET (FP) PO SCH (21:24)
[2020-12-31] MEDS ORDERED: PT OWN MED DRAWER 7, Y5N ONE (22:17)
[2021-01-01] MEDS: ACETAMINOPHEN 325 MG TABLET (FP) PO PRN (06:30)
[2021-01-01] MEDS: GABAPENTIN 100 MG CAPSULE PO SCH (06:30)
[2021-01-01] MEDS: METHOCARBAMOL 500 MG TABLET PO PRN (06:30)
[2021-01-01] MEDS: hydrOXYzine PAMOATE 50 MG CAPSULE (FP) PO PRN (06:30)
[2021-01-01 07:38] VITALS: BP 131/91; PULSE 71; TEMP 96.9
[2021-01-01] MEDS: PRENATAL VITAMINS W/ FOLIC ACID TABLET (FP) PO SCH (09:36)
[2021-01-01] MEDS: TOLNAFTATE 1% CREAM 15 GM TUBE TP SCH (09:37)
[2021-01-01] MEDS: BUPRENORPHINE/NALOXONE 4 MG/1 MG FILM PACKET SL SCH (09:37)
[2021-01-01] MEDS: NICOTINE 7 MG/24 HOURS TOPICAL PATCH TD SCH (09:37)
== END 2021-01-01 09:40 | disposition home or self-care (01) | DRG 772 ==
LOC: YASAS 13:17 → Y5N 13:22
PROVIDERS: ADMIT Allergy & Immunology; ATTEND Allergy & Immunology
PROC: HZ42ZZZ Group Counseling for Substance Abuse Treatment, Cognitive-Behavioral (ICD-10-PCS; principal; 2020-12-22)
DX: F10.20 Alcohol dependence, uncomplicated (principal); F11.20 Opioid dependence, uncomplicated; F14.20 Cocaine dependence, uncomplicated; F17.210 Nicotine dependence, cigarettes, uncomplicated; F41.9 Anxiety disorder, unspecified; F42.4 Excoriation (skin-picking) disorder; L30.9 Dermatitis, unspecified; K21.9 Gastro-esophageal reflux disease without esophagitis; G47.00 Insomnia, unspecified
CPT/HCPCS: J0735

== ENCOUNTER 2021-01-06 23:18 | Inpatient (IN) | payer OTHER ==
[2021-01-07] MEDS ORDERED: MAGNESIUM HYDROX 2400MG/30ML ORAL SUSPENSION 30 ML CUP PO PRN (00:25)
[2021-01-07] MEDS ORDERED: MAG HYDROX/AL HYDROX/SIMETH 30 ML UNIT-DOSE CUP PO PRN (00:25)
[2021-01-07] MEDS ORDERED: ACETAMINOPHEN 325 MG TABLET (FP) PO PRN ×2 (00:25)
[2021-01-07] MEDS ORDERED: BISMUTH SUBSALICYLATE 524 MG/30 ML PO PRN (00:25)
[2021-01-07] MEDS ORDERED: guaiFENesin 200 MG/10 ML 10 ML UNIT-DOSE CUPS PO PRN (00:25)
[2021-01-07] MEDS ORDERED: ONDANSETRON *ODT* 4 MG TABLET SL PRN (00:25)
[2021-01-07] MEDS ORDERED: NALOXONE HCL 0.4 MG/ML VIAL IM PRN (00:25)
[2021-01-07] MEDS ORDERED: MENTHOL/PHENOL 1 EACH UD MM PRN (00:25)
[2021-01-07] MEDS ORDERED: P-EPHED 60MG/TRIPROLIDI 2.5MG TABLET PO PRN (00:25)
[2021-01-07] MEDS ORDERED: NALOXONE (NARCAN) HCL 4 MG/0.1 ML SPRAY NS PRN (00:25)
[2021-01-07] MEDS ORDERED: NICOTINE POLACRILEX 2 MG GUM BUC PRN (00:25)
[2021-01-07] MEDS ORDERED: MAGNESIUM CITRATE 300 ML BOTTLE PO PRN (00:25)
[2021-01-07] MEDS ORDERED: DICYCLOMINE HCL 10 MG CAPSULE PO PRN (00:25)
[2021-01-07 02:16] VITALS: BMI 26.6
[2021-01-07] MEDS ORDERED: chlordiazePOXIDE HCL 25 MG CAPSULE PO PRN (08:28)
[2021-01-07] MEDS ORDERED: METHADONE HCL 10 MG TABLET (FOR DETOX USE ONLY) PO ONE (09:15)
[2021-01-07] MEDS ORDERED: METHADONE HCL 10 MG TABLET (FOR DETOX USE ONLY) ONE (10:01)
[2021-01-07] MEDS ORDERED: diazePAM 5 MG TABLET ONE (10:01)
[2021-01-07] MEDS: diazePAM 5 MG TABLET PO SCH ×4 (10:06→22:31)
[2021-01-07] MEDS: PRENATAL VITAMINS W/ FOLIC ACID TABLET (FP) PO SCH (10:55)
[2021-01-07] MEDS: METHOCARBAMOL 500 MG TABLET PO PRN ×2 (10:55→17:44)
[2021-01-07] MEDS: hydrOXYzine PAMOATE 25 MG CAPSULE (FP) PO PRN ×2 (10:55→22:31)
[2021-01-07] MEDS: NICOTINE 14 MG/24 HOURS TOPICAL PATCH TD SCH (10:59)
[2021-01-07] MEDS ORDERED: chlordiazePOXIDE HCL 25 MG CAPSULE PO SCH (11:00)
[2021-01-07 14:15] LABS: HEMATOCRIT 38.4 % (35.4-49); HEMOGLOBIN 12.1 GM/dL (11.7-16.9); MCH 27.8 pg (25.7-33.7); MCHC 31.4 g/dl (32.0-35.9); MEAN CELL VOLUME 88.3 fl (80-96); PLATELET COUNT 275 10^3/uL (134-434); RBC 4.34 M/mm3 (4.00-5.60); RDW 12.8 % (11.9-15.9); WHITE BLOOD COUNT 10.1 K/mm3 (4.0-10.0)
[2021-01-07 14:20] LABS: BLOOD UREA NITROGEN 18.5 mg/dL (7-18)
[2021-01-07 14:23] LABS: CREATININE 0.9 mg/dL (0.55-1.3)
[2021-01-07 14:25] LABS: BILIRUBIN,TOTAL 0.5 mg/dL (0.2-1)
[2021-01-07] MEDS: THIAMINE HCL 100 MG TABLET (FP) PO SCH (22:31)
[2021-01-07] MEDS: IBUPROFEN 400 MG TABLET (FP) PO PRN (22:36)
[2021-01-07] MEDS: MELATONIN 5 MG TABLETS PO SCH (22:46)
[2021-01-08] MEDS: diazePAM 5 MG TABLET PO SCH ×3 (06:21→22:05)
[2021-01-08] MEDS: METHOCARBAMOL 500 MG TABLET PO PRN ×2 (06:22→13:17)
[2021-01-08] MEDS ORDERED: METHADONE HCL 5 MG TABLET (FOR DETOX USE ONLY) ONE (09:09)
[2021-01-08] MEDS ORDERED: METHADONE HCL 10 MG TABLET (FOR DETOX USE ONLY) ONE (09:10)
[2021-01-08] MEDS ORDERED: METHADONE (DETOX) 20 MG, METHADONE (DETOX) 5 MG PO ONE (10:00)
[2021-01-08] MEDS: NICOTINE 14 MG/24 HOURS TOPICAL PATCH TD SCH (11:27)
[2021-01-08] MEDS: hydrOXYzine PAMOATE 25 MG CAPSULE (FP) PO PRN (11:30)
[2021-01-08] MEDS: PRENATAL VITAMINS W/ FOLIC ACID TABLET (FP) PO SCH (11:31)
[2021-01-08] MEDS: cloNIDine HCL 0.1 MG TABLET PO PRN (22:05)
[2021-01-08] MEDS: THIAMINE HCL 100 MG TABLET (FP) PO SCH (22:05)
[2021-01-08] MEDS: MELATONIN 5 MG TABLETS PO SCH (22:06)
[2021-01-08] MEDS: SUVOREXANT 10 MG TABLET PO PRN (22:08)
[2021-01-09] MEDS ORDERED: chlordiazePOXIDE HCL 25 MG CAPSULE PO SCH (05:00)
[2021-01-09] MEDS: diazePAM 5 MG TABLET PO SCH ×2 (06:09→18:12)
[2021-01-09] MEDS: METHOCARBAMOL 500 MG TABLET PO PRN ×3 (06:11→19:26)
[2021-01-09] MEDS ORDERED: METHADONE HCL 10 MG TABLET (FOR DETOX USE ONLY) PO ONE (10:00)
[2021-01-09] MEDS: PRENATAL VITAMINS W/ FOLIC ACID TABLET (FP) PO SCH (10:18)
[2021-01-09] MEDS: NICOTINE 14 MG/24 HOURS TOPICAL PATCH TD SCH (10:18)
[2021-01-09] MEDS: diazePAM 5 MG TABLET PO PRN ×3 (10:20→22:00)
[2021-01-09] MEDS: hydrOXYzine PAMOATE 25 MG CAPSULE (FP) PO PRN ×2 (12:45→19:26)
[2021-01-09] MEDS: IBUPROFEN 400 MG TABLET (FP) PO PRN ×2 (16:34→21:59)
[2021-01-09] MEDS: cloNIDine HCL 0.1 MG TABLET PO PRN (16:34)
[2021-01-09] MEDS ORDERED: LOPERAMIDE HCL 2 MG CAPSULE PO PRN (19:29)
[2021-01-09] MEDS: THIAMINE HCL 100 MG TABLET (FP) PO SCH (21:59)
[2021-01-09] MEDS: MELATONIN 5 MG TABLETS PO SCH (22:01)
[2021-01-09] MEDS: SUVOREXANT 10 MG TABLET PO PRN (22:01)
[2021-01-10] MEDS ORDERED: chlordiazePOXIDE HCL 10 MG CAPSULE PO PRN
[2021-01-10] MEDS ORDERED: chlordiazePOXIDE HCL 10 MG CAPSULE PO SCH (05:00)
[2021-01-10] MEDS: hydrOXYzine PAMOATE 25 MG CAPSULE (FP) PO PRN (05:59)
[2021-01-10] MEDS: METHOCARBAMOL 500 MG TABLET PO PRN ×2 (05:59→12:02)
[2021-01-10] MEDS ORDERED: diazePAM 5 MG TABLET PO ONE (06:00)
[2021-01-10] MEDS ORDERED: METHADONE HCL 10 MG TABLET (FOR DETOX USE ONLY) ONE (08:57)
[2021-01-10] MEDS ORDERED: METHADONE HCL 5 MG TABLET (FOR DETOX USE ONLY) ONE (08:57)
[2021-01-10 09:10] VITALS: PULSE 79
[2021-01-10] MEDS: NICOTINE 14 MG/24 HOURS TOPICAL PATCH TD SCH (09:52)
[2021-01-10] MEDS: PRENATAL VITAMINS W/ FOLIC ACID TABLET (FP) PO SCH (09:52)
[2021-01-10] MEDS ORDERED: METHADONE (DETOX) 10 MG, METHADONE (DETOX) 5 MG PO ONE (10:00)
[2021-01-10] MEDS ORDERED: diazePAM 5 MG TABLET PO PRN (11:02)
[2021-01-10] MEDS ORDERED: MASKS NR ONE (12:04)
[2021-01-10 12:52] VITALS: BP 110/68; TEMP 98.1
[2021-01-11] MEDS ORDERED: chlordiazePOXIDE HCL 10 MG CAPSULE PO SCH (05:00)
[2021-01-11] MEDS ORDERED: METHADONE HCL 10 MG TABLET (FOR DETOX USE ONLY) PO ONE (10:00)
[2021-01-12] MEDS ORDERED: chlordiazePOXIDE HCL 10 MG CAPSULE PO ONE (05:00)
[2021-01-12] MEDS ORDERED: METHADONE HCL 5 MG TABLET (FOR DETOX USE ONLY) PO ONE (06:00)
== END 2021-01-10 15:15 | disposition left against medical advice (07) | DRG 770 ==
LOC: YASAS 23:18 → Y6N 01-07 10:02
PROVIDERS: ADMIT Allergy & Immunology; ATTEND Allergy & Immunology
PROC: HZ2ZZZZ Detoxification Services for Substance Abuse Treatment (ICD-10-PCS; principal; 2021-01-07)
DX: F11.23 Opioid dependence with withdrawal (principal); F10.230 Alcohol dependence with withdrawal, uncomplicated; F13.230 Sedative, hypnotic or anxiolytic dependence with withdrawal, uncomplicated; F14.20 Cocaine dependence, uncomplicated; F16.10 Hallucinogen abuse, uncomplicated; F17.210 Nicotine dependence, cigarettes, uncomplicated; F19.24 Other psychoactive substance dependence with psychoactive substance-induced mood disorder; F19.280 Other psychoactive substance dependence with psychoactive substance-induced anxiety disorder; F19.282 Other psychoactive substance dependence with psychoactive substance-induced sleep disorder; F42.4 Excoriation (skin-picking) disorder; K21.9 Gastro-esophageal reflux disease without esophagitis; K29.20 Alcoholic gastritis without bleeding; L30.9 Dermatitis, unspecified
CPT/HCPCS: 36415; 80053; 85027; 86780; C9803; J0735; U0003; U0005

== ENCOUNTER 2021-01-24 16:18 | Inpatient (IN) | payer OTHER ==
[2021-01-24 17:07] VITALS: BMI 24.4
[2021-01-24] MEDS ORDERED: ACETAMINOPHEN 325 MG TABLET (FP) PO PRN ×2 (18:27)
[2021-01-24] MEDS ORDERED: NICOTINE POLACRILEX 2 MG GUM BUC PRN (18:27)
[2021-01-24] MEDS ORDERED: BISMUTH SUBSALICYLATE 524 MG/30 ML PO PRN (18:27)
[2021-01-24] MEDS ORDERED: IBUPROFEN 400 MG TABLET (FP) PO PRN (18:27)
[2021-01-24] MEDS ORDERED: MAGNESIUM CITRATE 300 ML BOTTLE PO PRN (18:27)
[2021-01-24] MEDS ORDERED: MAGNESIUM HYDROX 2400MG/30ML ORAL SUSPENSION 30 ML CUP PO PRN (18:27)
[2021-01-24] MEDS ORDERED: ONDANSETRON *ODT* 4 MG TABLET SL PRN (18:27)
[2021-01-24] MEDS ORDERED: MENTHOL/PHENOL 1 EACH UD MM PRN (18:27)
[2021-01-24] MEDS ORDERED: MAG HYDROX/AL HYDROX/SIMETH 30 ML UNIT-DOSE CUP PO PRN (18:27)
[2021-01-24] MEDS ORDERED: methaDONE HCL 10 MG TABLET (FOR DETOX USE ONLY) PO ONE (18:32)
[2021-01-24] MEDS ORDERED: MELATONIN 5 MG TABLETS PO SCH (22:00)
[2021-01-24] MEDS: diazePAM 5 MG TABLET PO SCH (22:32)
[2021-01-24] MEDS: THIAMINE HCL 100 MG TABLET (FP) PO SCH (22:33)
[2021-01-25] MEDS: diazePAM 5 MG TABLET PO SCH ×4 (05:49→22:29)
[2021-01-25] MEDS: METHOCARBAMOL 500 MG TABLET PO PRN ×2 (05:50→17:15)
[2021-01-25] MEDS ORDERED: methaDONE HCL 10 MG TABLET (FOR DETOX USE ONLY) ONE (08:53)
[2021-01-25] MEDS: PRENATAL VITAMINS W/ FOLIC ACID TABLET (FP) PO SCH (10:05)
[2021-01-25] MEDS: NICOTINE 14 MG/24 HOURS TOPICAL PATCH TD SCH (10:06)
[2021-01-25 10:21] LABS: HEMATOCRIT 40.3 % (35.4-49); HEMOGLOBIN 13.2 GM/dL (11.7-16.9); MCH 28.3 pg (25.7-33.7); MCHC 32.7 g/dl (32.0-35.9); MEAN CELL VOLUME 86.4 fl (80-96); MEAN PLT VOLUME 7.9 fl (7.5-11.1); PLATELET COUNT 250 10^3/uL (134-434); RBC 4.67 M/mm3 (4.00-5.60); RDW 12.7 % (11.9-15.9); WHITE BLOOD COUNT 8.3 K/mm3 (4.0-10.0)
[2021-01-25 10:25] LABS: ALBUMIN 3.7 g/dl (3.4-5.0); BLOOD UREA NITROGEN 19.3 mg/dL (7-18); CALCIUM 8.9 mg/dL (8.5-10.1)
[2021-01-25 10:30] LABS: BILIRUBIN,TOTAL 0.4 mg/dL (0.2-1); TOT PROT 6.6 g/dl (6.4-8.2)
[2021-01-25] MEDS: cloNIDine HCL 0.1 MG TABLET PO PRN (17:17)
[2021-01-25] MEDS: THIAMINE HCL 100 MG TABLET (FP) PO SCH (22:30)
[2021-01-25] MEDS: hydrOXYzine PAMOATE 50 MG CAPSULE (FP) PO PRN (22:30)
[2021-01-25] MEDS: SUVOREXANT 10 MG TABLET PO PRN (22:30)
[2021-01-26] MEDS: diazePAM 5 MG TABLET PO SCH ×3 (05:49→22:12)
[2021-01-26] MEDS: METHOCARBAMOL 500 MG TABLET PO PRN ×2 (05:50→15:05)
[2021-01-26] MEDS ORDERED: methaDONE HCL 10 MG TABLET (FOR DETOX USE ONLY) PO ONE (10:00)
[2021-01-26] MEDS: PRENATAL VITAMINS W/ FOLIC ACID TABLET (FP) PO SCH (10:19)
[2021-01-26] MEDS: diazePAM 5 MG TABLET PO PRN (10:20)
[2021-01-26] MEDS: cloNIDine HCL 0.1 MG TABLET PO PRN ×2 (10:20→15:05)
[2021-01-26] MEDS: NICOTINE 14 MG/24 HOURS TOPICAL PATCH TD SCH (10:22)
[2021-01-26] MEDS: THIAMINE HCL 100 MG TABLET (FP) PO SCH (22:13)
[2021-01-26] MEDS: hydrOXYzine PAMOATE 50 MG CAPSULE (FP) PO PRN (22:13)
[2021-01-26] MEDS: SUVOREXANT 10 MG TABLET PO PRN (22:14)
[2021-01-27] MEDS: hydrOXYzine PAMOATE 50 MG CAPSULE (FP) PO PRN ×2 (05:16→10:01)
[2021-01-27] MEDS: METHOCARBAMOL 500 MG TABLET PO PRN ×2 (05:16→12:16)
[2021-01-27] MEDS ORDERED: diazePAM 5 MG TABLET PO SCH (06:00)
[2021-01-27] MEDS ORDERED: methaDONE HCL 10 MG TABLET (FOR DETOX USE ONLY) ONE (09:18)
[2021-01-27] MEDS: PRENATAL VITAMINS W/ FOLIC ACID TABLET (FP) PO SCH (10:01)
[2021-01-27] MEDS: NICOTINE 14 MG/24 HOURS TOPICAL PATCH TD SCH (10:03)
[2021-01-27] MEDS: diazePAM 5 MG TABLET PO PRN (12:15)
[2021-01-27 12:53] VITALS: BP 117/73; PULSE 72; TEMP 98
[2021-01-28] MEDS ORDERED: diazePAM 5 MG TABLET PO ONE (06:00)
[2021-01-28] MEDS ORDERED: methaDONE HCL 10 MG TABLET (FOR DETOX USE ONLY) PO ONE (10:00)
== END 2021-01-27 14:27 | disposition home or self-care (01) | DRG 773 ==
LOC: YASAS 16:18 → Y3N 19:52
PROVIDERS: ADMIT Allergy & Immunology; ATTEND Allergy & Immunology
PROC: HZ2ZZZZ Detoxification Services for Substance Abuse Treatment (ICD-10-PCS; principal; 2021-01-24)
DX: F11.23 Opioid dependence with withdrawal (principal); F13.230 Sedative, hypnotic or anxiolytic dependence with withdrawal, uncomplicated; F10.20 Alcohol dependence, uncomplicated; F14.20 Cocaine dependence, uncomplicated; F17.210 Nicotine dependence, cigarettes, uncomplicated; F19.280 Other psychoactive substance dependence with psychoactive substance-induced anxiety disorder; F19.282 Other psychoactive substance dependence with psychoactive substance-induced sleep disorder; F41.9 Anxiety disorder, unspecified; K29.20 Alcoholic gastritis without bleeding; K21.9 Gastro-esophageal reflux disease without esophagitis; L30.9 Dermatitis, unspecified
CPT/HCPCS: 36415; 80053; 85027; 86780; C9803; J0735; U0003; U0005